=== PATIENT | female | born 1995 | race Two or more races ===

== ENCOUNTER 2019-01-01 19:56 | Emergency (ER) | payer OTHER ==
[~2019-01-01] VITALS: Ht 160 cm; Wt 77.1 kg
[2019-01-01] MEDS ORDERED: PRENATABS RX T1 EACH (20:05)
[2019-01-02] MEDS ORDERED: CEFUROXIME500 MG PO (03:34)
== END 2019-01-02 03:37 | disposition home or self-care (01) ==
LOC: ER 19:56
DX: B34.9 Viral infection, unspecified (principal); J11.1 Influenza due to unidentified influenza virus with other respiratory manifestations

== ENCOUNTER 2019-02-18 17:19 | Outpatient (CLI) | payer OTHER ==
[~2019-02-18 17:19] MED LIST: CEFUROXIME500 MG PO; PRENATABS RX T1 EACH
== END 2019-02-19 09:16 | disposition home or self-care (01) ==
LOC: OBS/DEL 17:19
DX: O26.893 Other specified pregnancy related conditions, third trimester (principal); R10.2 Pelvic and perineal pain; Z34.03 Encounter for supervision of normal first pregnancy, third trimester

== ENCOUNTER 2023-07-06 22:39 | Emergency (ER) | payer OTHER ==
[~2023-07-06] VITALS: Ht 167.6 cm; Wt 82.6 kg
== END 2023-07-07 02:18 | disposition home or self-care (01) ==
LOC: ER 22:40
DX: S61.511A Laceration without foreign body of right wrist, initial encounter (principal); W45.8XXA Other foreign body or object entering through skin, initial encounter; Y93.9 Activity, unspecified; Y92.9 Unspecified place or not applicable; Y99.9 Unspecified external cause status

== ENCOUNTER 2023-07-23 14:19 | Emergency (ER) | payer OTHER ==
[~2023-07-23] VITALS: Ht 157.5 cm; Wt 82.6 kg
== END 2023-07-23 15:45 | disposition home or self-care (01) ==
LOC: ER 14:19
DX: Z48.02 Encounter for removal of sutures (principal)

== ENCOUNTER 2024-01-27 18:17 | Outpatient (CLI) | payer OTHER ==
[2024-01-27] MEDS ORDERED: RINGERS SOLUTION,LACTATED 1,000 ML IV SCH (18:30)
[2024-01-27] MEDS ORDERED: AMPICILLIN SODIUM 2,000 MG VIAL IV ONE (18:30)
[2024-01-27 19:26] LABS: HEMATOCRIT 39.6 % (36.0-45.00); HEMOGLOBIN 13.9 g/dL (12.0-15.00); MEAN CELL VOLUME 79.6 fL (80.00-100.00); MEAN CORPUSCULAR HEMOGLOBIN 27.9 pg (27.00-32.0); MEAN CORPUSCULAR HGB CONC 35.1 g/dl (32.0-36.0); PLATELET COUNT 295 K/uL (150-450); RED BLOOD COUNT 4.97 M/uL (4.00-6.00); URINE APPEARANCE Turbid; URINE BILIRRUBIN Negative (NEGATIVE); URINE BLOOD Negative; URINE COLOR Dark Yellow; URINE GLUCOSE Negative (NEGATIVE); URINE LEUKOCYTE Large; URINE NITRATE Negative; URINE PROTEIN 30 (NEGATIVE)
[2024-01-27 19:30] LABS: URINE RBC 3.3 uL (0.0-20.8); URINE WBC 775.3 uL (0.0-23.2)
[2024-01-27 20:22] LABS: URINE BACTERIA > 9821.5 uL (0.0-1933); URINE EPITHELIAL CELLS > 201.7 uL (0.0-38.8)
[2024-01-27] MEDS ORDERED: AMPICILLIN SODIUM 1,000 MG VIAL IV SCH (21:45)
[2024-01-28] MEDS ORDERED: AMPICILLIN SODIUM 1,000 MG VIAL IV SCH
[2024-01-28] MEDS ORDERED: CEFAZOLIN SODIUM 1,000 MG VIAL ONE (05:21)
== END 2024-01-28 13:25 | disposition home or self-care (01) ==
LOC: OBS/DEL 18:17
PROVIDERS: ATTEND Obstetrics & Gynecology
DX: O26.893 Other specified pregnancy related conditions, third trimester (principal); Z3A.38 38 weeks gestation of pregnancy